=== PATIENT | male | born 1965 | race Caucasian/White ===

== ENCOUNTER 2018-01-16 14:05 | Outpatient (CLI) | END 2018-01-16 14:06 | disposition home or self-care (01) | LOC: CAR 14:05 | PROVIDERS: ATTEND Physician Assistant | DX: G47.33 Obstructive sleep apnea (adult) (pediatric) (principal) | CPT/HCPCS: 95810 ==

== ENCOUNTER 2018-02-13 15:15 | Outpatient (CLI) | END 2018-02-13 15:16 | disposition home or self-care (01) | LOC: CAR 15:15 | PROVIDERS: ATTEND Physician Assistant | DX: G47.30 Sleep apnea, unspecified (principal) | CPT/HCPCS: 95811 ==